=== PATIENT | male | born 1940 | race Caucasian/White ===

== ENCOUNTER → 2019-08-01 | Outpatient (CLI) | payer BC, OTHER ==
[2019-08-01 08:39] LABS: Basophils # (auto) 0.1 uL; Basophils % (auto) 0.6 % (0.0-2.0); Eosinophils # (auto) 0.3 uL; Eosinophils % (auto) 3.5 % (0.0-7.0); Hematocrit 38.8 % (41.0-53.0); Hemoglobin 13.1 g/dL (13.5-17.5); Lymphocytes # (auto) 2.3 uL; Lymphocytes % (auto) 28.2 % (10.0-50.0); Mean Corpuscular Hemoglobin 29.7 pg (28.0-32.0); Mean Corpuscular Hgb Conc. 33.7 g/dL (32.0-36.0); Mean Corpuscular Volume 88.2 fL (80.0-100.0); Monocytes # (auto) 0.8 uL; Monocytes % (auto) 9.5 % (0.0-12.0); Neutrophils # (auto) 4.8 uL; Neutrophils % (auto) 58.2 % (37.0-80.0); Platelet Count (auto) 221 10^3/uL (140-450); Red Cell Distribution Width 14.8 % (11.8-14.3); White Blood Cell 8.3 10^3/uL (4.4-10.8)
[2019-08-01 08:41] LABS: Urine Bacteria NONE SEEN /hpf (None Seen); Urine Blood TRACE /uL (Negative); Urine Mucus FEW (None Seen); Urine Specific Gravity 1.018 (1.001-1.035); Urine WBC 2 /hpf (0 - 3)
[2019-08-01 09:04] LABS: Albumin 3.6 g/dL (3.4-5.0); Calcium 9.8 mg/dL (8.5-10.1)
[2019-08-01 09:12] LABS: BUN/Creatinine Ratio 22.7; Bilirubin, Total 0.8 mg/dL (0.2-1.0); Total Protein 7.7 g/dL (6.4-8.2)
== END | disposition home or self-care (01) ==
LOC: LAB 08:10
PROVIDERS: ATTEND Internal Medicine
DX: E11.22 Type 2 diabetes mellitus with diabetic chronic kidney disease (principal); I12.9 Hypertensive chronic kidney disease with stage 1 through stage 4 chronic kidney disease, or unspecified chronic kidney disease; N18.9 Chronic kidney disease, unspecified
CPT/HCPCS: 36415; 80053; 80061; 81001; 82043; 82274; 82607; 83036; 84443; 85025

== ENCOUNTER → 2019-09-04 | Outpatient (CLI) | payer BC, OTHER ==
[2019-09-04 09:58] LABS: Calcium 9.4 mg/dL (8.5-10.1); Potassium 4.6 mmol/L (3.5-5.1)
== END | disposition home or self-care (01) ==
LOC: LAB 09:10
PROVIDERS: ATTEND Internal Medicine
DX: E11.22 Type 2 diabetes mellitus with diabetic chronic kidney disease (principal); N18.9 Chronic kidney disease, unspecified; Z79.4 Long term (current) use of insulin; Z86.73 Personal history of transient ischemic attack (TIA), and cerebral infarction without residual deficits
CPT/HCPCS: 36415; 80048; 82043

== ENCOUNTER → 2019-12-05 | Outpatient (CLI) | payer OTHER ==
[2019-12-05 07:51] LABS: Basophils # (auto) 0 10 ^3/uL (0-0.2); Basophils % (auto) 0.4 % (0.0-2.0); Eosinophils # (auto) 0.3 10 ^3/uL (0-0.8); Eosinophils % (auto) 3.7 % (0.0-7.0); Hematocrit 39.9 % (41.0-53.0); Hemoglobin 13.2 g/dL (13.5-17.5); Lymphocytes # (auto) 2.3 10 ^3/uL (0.4-5.4); Mean Corpuscular Hemoglobin 29.6 pg (28.0-32.0); Mean Corpuscular Hgb Conc. 33.2 g/dL (32.0-36.0); Mean Corpuscular Volume 89.2 fL (80.0-100.0); Monocytes # (auto) 0.7 10 ^3/uL (0-1.3); Monocytes % (auto) 9.4 % (0.0-12.0); Neutrophils # (auto) 4.5 10 ^3/uL (1.6-8.6); Neutrophils % (auto) 57.5 % (37.0-80.0); Platelet Count (auto) 192 10^3/uL (140-450); Red Blood Cells 4.47 10^6/uL (4.5-5.90); Red Cell Distribution Width 15.6 % (11.8-14.3); White Blood Cell 7.9 10^3/uL (4.4-10.8)
[2019-12-05 09:23] LABS: Potassium 4.2 mmol/L (3.5-5.1)
[2019-12-05 09:34] LABS: Albumin 3.8 g/dL (3.4-5.0); BUN/Creatinine Ratio 24.8; Bilirubin, Total 0.8 mg/dL (0.2-1.0); Calcium 9.6 mg/dL (8.5-10.1)
== END | disposition home or self-care (01) ==
LOC: LAB 07:20
PROVIDERS: ATTEND Internal Medicine
DX: E11.22 Type 2 diabetes mellitus with diabetic chronic kidney disease (principal); I12.9 Hypertensive chronic kidney disease with stage 1 through stage 4 chronic kidney disease, or unspecified chronic kidney disease; N18.9 Chronic kidney disease, unspecified
CPT/HCPCS: 36415; 80053; 80061; 83036; 85025

== ENCOUNTER → 2019-12-07 | Outpatient (CLI) | payer OTHER, BC | END | disposition home or self-care (01) | LOC: CARD 09:14 | PROVIDERS: ATTEND Internal Medicine | DX: I08.3 Combined rheumatic disorders of mitral, aortic and tricuspid valves (principal); I48.91 Unspecified atrial fibrillation; I10 Essential (primary) hypertension; E11.9 Type 2 diabetes mellitus without complications; Z86.73 Personal history of transient ischemic attack (TIA), and cerebral infarction without residual deficits | CPT/HCPCS: 93306 ==

== ENCOUNTER → 2020-02-02 | Outpatient (CLI) | payer BC, OTHER ==
[2020-02-02 11:35] LABS: Albumin 3.6 g/dL (3.4-5.0); Calcium 9.5 mg/dL (8.5-10.1); Potassium 4.2 mmol/L (3.5-5.1)
[2020-02-02 11:39] LABS: BUN/Creatinine Ratio 31.6; Bilirubin, Total 0.5 mg/dL (0.2-1.0); Total Protein 7.7 g/dL (6.4-8.2)
== END | disposition home or self-care (01) ==
LOC: LAB 10:19
PROVIDERS: ATTEND Internal Medicine
DX: I10 Essential (primary) hypertension (principal)
CPT/HCPCS: 36415; 80053

== ENCOUNTER → 2020-05-01 | Outpatient (CLI) | payer BC, OTHER, MEDICARE | END | disposition home or self-care (01) | LOC: XY 17:15 | PROVIDERS: ATTEND Internal Medicine | DX: I73.9 Peripheral vascular disease, unspecified (principal); I10 Essential (primary) hypertension; E11.9 Type 2 diabetes mellitus without complications | CPT/HCPCS: 93925 ==

== ENCOUNTER → 2020-05-22 | Day surgery (SDC) | payer OTHER ==
[2020-05-17 10:38] LABS: Basophils # (auto) 0 10 ^3/uL (0-0.2); Basophils % (auto) 0.5 % (0.0-2.0); Eosinophils # (auto) 0.4 10 ^3/uL (0-0.8); Eosinophils % (auto) 3.9 % (0.0-7.0); Hematocrit 37.1 % (41.0-53.0); Hemoglobin 12.5 g/dL (13.5-17.5); Lymphocytes # (auto) 2.4 10 ^3/uL (0.4-5.4); Lymphocytes % (auto) 26.3 % (10.0-50.0); Mean Corpuscular Hemoglobin 30.6 pg (28.0-32.0); Mean Corpuscular Hgb Conc. 33.7 g/dL (32.0-36.0); Mean Corpuscular Volume 90.8 fL (80.0-100.0); Monocytes # (auto) 0.8 10 ^3/uL (0-1.3); Monocytes % (auto) 8.8 % (0.0-12.0); Neutrophils # (auto) 5.4 10 ^3/uL (1.6-8.6); Neutrophils % (auto) 60.5 % (37.0-80.0); Platelet Count (auto) 215 10^3/uL (140-450); Red Blood Cells 4.09 10^6/uL (4.5-5.90); Red Cell Distribution Width 14.9 % (11.8-14.3)
[2020-05-17 10:49] LABS: Urine Bacteria NONE SEEN /hpf (None Seen); Urine Blood Negative /uL (Negative); Urine Hyaline Cast FEW /lpf (0 - 2); Urine Specific Gravity 1.011 (1.001-1.035); Urine WBC 1 /hpf (0 - 3)
[2020-05-17 10:57] LABS: INR 1.14 (0.9-1.15); Partial Thromboplastin Time 30.8 sec (23.0-31.2)
[2020-05-17 11:00] LABS: Potassium 3.8 mmol/L (3.5-5.1)
[2020-05-17 11:06] LABS: Albumin 4.1 g/dL (3.4-5.0); BUN/Creatinine Ratio 36.8; Bilirubin, Total 0.8 mg/dL (0.2-1.0); Calcium 9.7 mg/dL (8.5-10.1); Total Protein 7.9 g/dL (6.4-8.2)
[~2020-05-22] VITALS: Ht 190.5 cm; Wt 133.8 kg
[~2020-05-22] MED LIST: ACCU-CHEK COMFORT CURVE STRIP VI ONE; AMLO10TA13 PO; APIX5TAB PO; ASPI-543 PO; ATOR10TA52 PO; DexAMETHasone SOD PHOS 10MG/1ML VIAL INJ ONE; FURO40TA4 PO; HYDROmorphone HCL 2 MG/ML VL IV PRN; LABETALOL HCL 5 MG/ML 4ML SYRINGE IV PRN; MEPERIDINE HCL (50 MG/ML) 1 ML VIAL ONE; METF-372 PO; MIDAZOLAM HCL 1MG/1ML-2 ML VIAL IV PRN; MIDAZOLAM HCL 1MG/1ML-2 ML VIAL ONE; NEOMYCIN-BACITRACIN-POLYM 15GM TOP OINT TOP ONE; ONDANSETRON HCL 4 MG/2 ML VIAL IV PRN; POTA1TAB61 PO; PROPOFOL 10 MG/ML 20 ML IV ONE; ROPIVACAINE 0.5% (5MG/ML) 20ML AMPULE IJ ONE; ceFAZolin 1GM/50ML 50 ML IV ONE; ePHEDrine SULFATE 50 MG/ML AMP IV PRN; fentaNYL CITRATE 100 MCG/2 ML VL ONE
[2020-05-22 09:10] VITALS: BP 125/64
== END | disposition home or self-care (01) ==
LOC: SUR 06:27
PROVIDERS: ATTEND Podiatrist Foot & Ankle Surgery
DX: M79.675 Pain in left toe(s) (principal); M20.40 Other hammer toe(s) (acquired), unspecified foot; I10 Essential (primary) hypertension; Z85.46 Personal history of malignant neoplasm of prostate; Z88.5 Allergy status to narcotic agent; E66.9 Obesity, unspecified; Z88.1 Allergy status to other antibiotic agents; Z90.49 Acquired absence of other specified parts of digestive tract; Z90.79 Acquired absence of other genital organ(s); Z68.36 Body mass index [BMI] 36.0-36.9, adult; Z20.828 Contact with and (suspected) exposure to other viral communicable diseases; Z98.890 Other specified postprocedural states; Z79.899 Other long term (current) drug therapy
CPT/HCPCS: 28285; 36415; 80053; 81001; 82962; 85025; 85610; 85730; C1713; J0690; J1100; J2175; J2250; J2704; J2795; J3010; U0003

== ENCOUNTER → 2020-06-11 | Outpatient (CLI) | payer BC, OTHER ==
[~2020-06-11] MED LIST changes: -ACCU-CHEK COMFORT CURVE STRIP VI ONE; -DexAMETHasone SOD PHOS 10MG/1ML VIAL INJ ONE; -HYDROmorphone HCL 2 MG/ML VL IV PRN; -LABETALOL HCL 5 MG/ML 4ML SYRINGE IV PRN; -MEPERIDINE HCL (50 MG/ML) 1 ML VIAL ONE; -MIDAZOLAM HCL 1MG/1ML-2 ML VIAL IV PRN; -MIDAZOLAM HCL 1MG/1ML-2 ML VIAL ONE; -NEOMYCIN-BACITRACIN-POLYM 15GM TOP OINT TOP ONE; -ONDANSETRON HCL 4 MG/2 ML VIAL IV PRN; -PROPOFOL 10 MG/ML 20 ML IV ONE; -ROPIVACAINE 0.5% (5MG/ML) 20ML AMPULE IJ ONE; -ceFAZolin 1GM/50ML 50 ML IV ONE; -ePHEDrine SULFATE 50 MG/ML AMP IV PRN; -fentaNYL CITRATE 100 MCG/2 ML VL ONE
[2020-06-11 09:00] LABS: Basophils # (auto) 0 10 ^3/uL (0-0.2); Basophils % (auto) 0.4 % (0.0-2.0); Eosinophils # (auto) 0.3 10 ^3/uL (0-0.8); Eosinophils % (auto) 4.5 % (0.0-7.0); Hemoglobin 11.8 g/dL (13.5-17.5); Lymphocytes # (auto) 1.9 10 ^3/uL (0.4-5.4); Lymphocytes % (auto) 24.5 % (10.0-50.0); Mean Corpuscular Hemoglobin 30.1 pg (28.0-32.0); Mean Corpuscular Hgb Conc. 32.9 g/dL (32.0-36.0); Mean Corpuscular Volume 91.4 fL (80.0-100.0); Monocytes # (auto) 0.7 10 ^3/uL (0-1.3); Monocytes % (auto) 9.8 % (0.0-12.0); Neutrophils # (auto) 4.7 10 ^3/uL (1.6-8.6); Neutrophils % (auto) 60.8 % (37.0-80.0); Nucleated Red Blood Cells % 0.1 %; Platelet Count (auto) 226 10^3/uL (140-450); Red Blood Cells 3.93 10^6/uL (4.5-5.90); Red Cell Distribution Width 14.5 % (11.8-14.3); White Blood Cell 7.7 10^3/uL (4.4-10.8)
[2020-06-11 09:29] LABS: Albumin 3.5 g/dL (3.4-5.0); Calcium 9.5 mg/dL (8.5-10.1); Potassium 4.4 mmol/L (3.5-5.1)
[2020-06-11 09:32] LABS: Bilirubin, Total 0.7 mg/dL (0.2-1.0); Total Protein 7.6 g/dL (6.4-8.2)
== END | disposition home or self-care (01) ==
LOC: LAB 08:36
PROVIDERS: ATTEND Internal Medicine
DX: E11.22 Type 2 diabetes mellitus with diabetic chronic kidney disease (principal)
CPT/HCPCS: 36415; 80053; 83036; 85025

== ENCOUNTER → 2020-09-13 | Outpatient (CLI) | payer BC, OTHER ==
[~2020-09-13] MED LIST changes: +AMLO-496 PO; -AMLO10TA13 PO
[2020-09-13 08:31] LABS: Urine Blood Negative /uL (Negative); Urine Specific Gravity 1.013 (1.001-1.035)
[2020-09-13 09:05] LABS: Calcium 9.4 mg/dL (8.5-10.1); Potassium 4.4 mmol/L (3.5-5.1)
[2020-09-13 09:09] LABS: BUN/Creatinine Ratio 36.9
== END | disposition home or self-care (01) ==
LOC: LAB 08:14
PROVIDERS: ATTEND Internal Medicine
DX: Z12.5 Encounter for screening for malignant neoplasm of prostate (principal); E11.22 Type 2 diabetes mellitus with diabetic chronic kidney disease; N18.9 Chronic kidney disease, unspecified; Z79.899 Other long term (current) drug therapy
CPT/HCPCS: 36415; 80048; 80061; 81003; 83036; 84153; 87086

== ENCOUNTER → 2020-09-18 | Outpatient (CLI) | payer BC, OTHER | END | disposition home or self-care (01) | LOC: LAB 10:33 | PROVIDERS: ATTEND Internal Medicine | DX: E11.22 Type 2 diabetes mellitus with diabetic chronic kidney disease (principal); N18.9 Chronic kidney disease, unspecified | CPT/HCPCS: 82043 ==

== ENCOUNTER → 2020-10-01 | Outpatient (CLI) | payer BC, OTHER | END | disposition home or self-care (01) | LOC: LAB 14:39 | PROVIDERS: ATTEND Internal Medicine | DX: I10 Essential (primary) hypertension (principal); I27.20 Pulmonary hypertension, unspecified | CPT/HCPCS: 36415; 82565; 84520 ==

== ENCOUNTER 2020-11-15 17:17 | Inpatient (IN) | payer OTHER ==
[~2020-11-15] VITALS: Ht 188 cm; Wt 145.1 kg
[2020-11-15 18:23] LABS: Basophils # (auto) 0.1 10 ^3/uL (0-0.2); Basophils % (auto) 0.6 % (0.0-2.0); Eosinophils # (auto) 0.3 10 ^3/uL (0-0.8); Eosinophils % (auto) 2.9 % (0.0-7.0); Hematocrit 35.5 % (41.0-53.0); Hemoglobin 12.2 g/dL (13.5-17.5); Lymphocytes # (auto) 2.3 10 ^3/uL (0.4-5.4); Lymphocytes % (auto) 24.4 % (10.0-50.0); Mean Corpuscular Hemoglobin 31.1 pg (28.0-32.0); Mean Corpuscular Hgb Conc. 34.3 g/dL (32.0-36.0); Mean Corpuscular Volume 90.7 fL (80.0-100.0); Monocytes % (auto) 10.4 % (0.0-12.0); Neutrophils # (auto) 5.8 10 ^3/uL (1.6-8.6); Neutrophils % (auto) 61.7 % (37.0-80.0); Nucleated Red Blood Cells % 0.1 %; Platelet Count (auto) 235 10^3/uL (140-450); Red Blood Cells 3.92 10^6/uL (4.5-5.90); Red Cell Distribution Width 14.9 % (11.8-14.3); White Blood Cell 9.5 10^3/uL (4.4-10.8)
[2020-11-15 18:34] LABS: Alanine Aminotransferase 28 U/L (16-61); Albumin 2.9 g/dL (3.4-5.0); Anion Gap 7 (5-15); Aspartate Aminotransferase 29 U/L (15-37); Blood Urea Nitrogen 36 mg/dL (7-18); Calcium 9.1 mg/dL (8.5-10.1); Carbon Dioxide 26 mmol/L (21-32); Chloride 109 mmol/L (98-107); Glucose 75 mg/dL (74-106); Magnesium 2.5 mg/dL (1.6-2.6); Potassium 3.9 mmol/L (3.5-5.1); Sodium 142 mmol/L (136-145)
[2020-11-15 18:39] LABS: Alkaline Phosphatase 100 U/L (45-117); BUN/Creatinine Ratio 35.3; Bilirubin, Total 0.6 mg/dL (0.2-1.0); GFR African American 91 mL/min; GFR Non-African American 75 mL/min; Total Protein 5.7 g/dL (6.4-8.2)
[2020-11-15 18:48] LABS: INR 1.07 (0.9-1.15); Partial Thromboplastin Time 28.2 sec (23.0-31.2)
[2020-11-15] MEDS ORDERED: ONDANSETRON HCL 4 MG/2 ML VIAL IV PRN (21:15)
[2020-11-15] MEDS ORDERED: MORPHINE SULF INJ 2 MG/ML SYRINGE 1ML IV PRN (21:15)
[2020-11-15] MEDS ORDERED: TEMAZEPAM 15 MG CAP PO PRN (21:15)
[2020-11-15] MEDS ORDERED: NITROGLYCERIN 0.4 MG SL TAB SL PRN (21:15)
[2020-11-15] MEDS ORDERED: ACETAMINOPHEN 325 MG TAB PO PRN (21:15)
[2020-11-15] MEDS: ATORVASTATIN 20 MG TAB PO SCH (22:17)
[2020-11-15] MEDS: FAMOTIDINE 20 MG TAB PO SCH (22:17)
[2020-11-15] MEDS: APIXABAN 5 MG TAB PO SCH (22:17)
[2020-11-15 23:20] VITALS: BP 144/60
[2020-11-16] MEDS ORDERED: FUROSEMIDE 20 MG/2 ML VIAL IV ONE (00:45)
[2020-11-16 05:00] VITALS: BP 123/54
[2020-11-16 06:02] LABS: Alcohol, Urine < 3.0 mg/dL (0-10); Amphetamine Screen, Urine NEGATIVE (NEGATIVE); Barbiturate Scree,Urine NEGATIVE (NEGATIVE); Benzodiazephine Screen, Urine NEGATIVE (NEGATIVE); Cannabinoid Screen, Urine NEGATIVE (NEGATIVE); Cocaine Screen, Urine NEGATIVE (NEGATIVE); Opiate Scree,Urine NEGATIVE (NEGATIVE); Phencyclidine Screen, Urine NEGATIVE (NEGATIVE)
[2020-11-16 06:21] LABS: Basophils # (auto) 0 10 ^3/uL (0-0.2); Basophils % (auto) 0.4 % (0.0-2.0); Eosinophils # (auto) 0.3 10 ^3/uL (0-0.8); Eosinophils % (auto) 4.9 % (0.0-7.0); Hematocrit 35.8 % (41.0-53.0); Hemoglobin 12.3 g/dL (13.5-17.5); Lymphocytes # (auto) 1.9 10 ^3/uL (0.4-5.4); Lymphocytes % (auto) 27.4 % (10.0-50.0); Mean Corpuscular Hemoglobin 31.1 pg (28.0-32.0); Mean Corpuscular Hgb Conc. 34.4 g/dL (32.0-36.0); Mean Corpuscular Volume 90.5 fL (80.0-100.0); Monocytes # (auto) 0.8 10 ^3/uL (0-1.3); Monocytes % (auto) 11.2 % (0.0-12.0); Neutrophils # (auto) 3.8 10 ^3/uL (1.6-8.6); Neutrophils % (auto) 56.1 % (37.0-80.0); Nucleated Red Blood Cells % 0.1 %; Platelet Count (auto) 211 10^3/uL (140-450); Red Blood Cells 3.95 10^6/uL (4.5-5.90); Red Cell Distribution Width 14.3 % (11.8-14.3); White Blood Cell 6.8 10^3/uL (4.4-10.8)
[2020-11-16 06:40] LABS: Albumin 2.7 g/dL (3.4-5.0); Calcium 8.8 mg/dL (8.5-10.1); Potassium 3.9 mmol/L (3.5-5.1)
[2020-11-16 06:43] LABS: Bilirubin, Total 0.7 mg/dL (0.2-1.0); Total Protein 5.5 g/dL (6.4-8.2)
[2020-11-16] MEDS ORDERED: FURO40TA4 PO (06:50)
[2020-11-16] MEDS ORDERED: HYDR-4296 PO (07:00)
[2020-11-16] MEDS ORDERED: LOSA-39 PO (07:00)
[2020-11-16] MEDS ORDERED: INSLANTI SC (07:00)
[2020-11-16 08:00] VITALS: BP 122/57
[2020-11-16 08:48] VITALS: BP 122/57
[2020-11-16] MEDS ORDERED: FUROSEMIDE 40 MG TAB PO SCH (10:00)
[2020-11-16] MEDS: APIXABAN 5 MG TAB PO SCH ×2 (10:49→22:18)
[2020-11-16] MEDS: FAMOTIDINE 20 MG TAB PO SCH ×2 (10:52→22:19)
[2020-11-16] MEDS: amLODIPine BESYLATE 5 MG TAB PO SCH (10:52)
[2020-11-16] MEDS ORDERED: FUROSEMIDE 40 MG/4 ML VIAL IV ONE (11:45)
[2020-11-16] MEDS ORDERED: POTASSIUM CHL 20 Meq TABLET PO ONE (11:45)
[2020-11-16 13:00] VITALS: BP 142/61
[2020-11-16] MEDS ORDERED: DEXTROSE (50%) 50ML SYRG IV PRN (16:45)
[2020-11-16 16:46] VITALS: BP 139/63
[2020-11-16] MEDS: FUROSEMIDE 40 MG/4 ML VIAL IV SCH (18:05)
[2020-11-16] MEDS: ACCU-CHEK COMFORT CURVE STRIP VI SCH ×2 (18:05→22:19)
[2020-11-16] MEDS: InsuLIN REG 1unit/0.01ml Soln (100units/ml) SC SCH ×2 (18:06→22:37)
[2020-11-16 22:00] VITALS: BP 129/68
[2020-11-16] MEDS: ADCIRCA 20 MG PO SCH (22:00)
[2020-11-16] MEDS: ATORVASTATIN 20 MG TAB PO SCH (22:19)
[2020-11-16] MEDS: INSULIN LANTUS (GLARGINE) 1 /0.01ml (100units/ml) SC SCH (22:40)
[2020-11-17 05:00] VITALS: BP 100/39
[2020-11-17] MEDS: FUROSEMIDE 40 MG/4 ML VIAL IV SCH ×3 (05:56→21:47)
[2020-11-17] MEDS: ACCU-CHEK COMFORT CURVE STRIP VI SCH ×4 (06:27→21:48)
[2020-11-17] MEDS: InsuLIN REG 1unit/0.01ml Soln (100units/ml) SC SCH ×4 (06:27→21:45)
[2020-11-17 06:43] LABS: BUN/Creatinine Ratio 32.4; Potassium 3.9 mmol/L (3.5-5.1)
[2020-11-17 08:00] VITALS: BP 126/62
[2020-11-17 08:21] VITALS: BP 126/62
[2020-11-17] MEDS: ADCIRCA 20 MG PO SCH (09:39)
[2020-11-17] MEDS: APIXABAN 5 MG TAB PO SCH ×2 (09:39→21:47)
[2020-11-17] MEDS: amLODIPine BESYLATE 5 MG TAB PO SCH (09:40)
[2020-11-17] MEDS: FAMOTIDINE 20 MG TAB PO SCH ×2 (09:40→21:48)
[2020-11-17] MEDS ORDERED: POTASSIUM CHL 20 Meq TABLET PO ONE (11:45)
[2020-11-17 12:50] VITALS: BP 150/75
[2020-11-17] MEDS: SILDENAFIL CITRATE 20 MG TAB PO SCH ×2 (13:48→21:46)
[2020-11-17 16:38] VITALS: BP 134/82
[2020-11-17] MEDS: INSULIN LANTUS (GLARGINE) 1 /0.01ml (100units/ml) SC SCH (21:46)
[2020-11-17] MEDS: ATORVASTATIN 20 MG TAB PO SCH (21:48)
[2020-11-17 22:00] VITALS: BP 135/51
[2020-11-18 05:00] VITALS: BP 90/48
[2020-11-18] MEDS: FUROSEMIDE 40 MG/4 ML VIAL IV SCH ×3 (05:18→21:46)
[2020-11-18] MEDS: InsuLIN REG 1unit/0.01ml Soln (100units/ml) SC SCH ×4 (06:05→21:41)
[2020-11-18] MEDS: ACCU-CHEK COMFORT CURVE STRIP VI SCH ×4 (06:06→21:49)
[2020-11-18 07:18] LABS: Urine Bacteria NONE SEEN /hpf (None Seen); Urine Blood Negative /uL (Negative); Urine Hyaline Cast FEW /lpf (0 - 2); Urine Mucus FEW (None Seen); Urine WBC 1 /hpf (0 - 3)
[2020-11-18] MEDS: SILDENAFIL CITRATE 20 MG TAB PO SCH ×3 (08:03→19:55)
[2020-11-18 08:42] VITALS: BP 119/55
[2020-11-18] MEDS: APIXABAN 5 MG TAB PO SCH (10:00)
[2020-11-18] MEDS: POTASSIUM CHL 20 Meq TABLET PO SCH (10:01)
[2020-11-18] MEDS: FAMOTIDINE 20 MG TAB PO SCH ×2 (10:01→21:48)
[2020-11-18] MEDS: amLODIPine BESYLATE 5 MG TAB PO SCH (10:02)
[2020-11-18] MEDS ORDERED: LIDOCAINE 2%HCL (LOCAL ANESTH.) INJ 20ML MDV ONE ×2 (12:19→12:36)
[2020-11-18] MEDS ORDERED: IODIXANOL 320MG/ML 100ML BTL IV ONE (12:19)
[2020-11-18] MEDS ORDERED: ANGIOMAX 250 MG VIAL IV ONE (12:34)
[2020-11-18] MEDS ORDERED: VANCOMYCIN HCL 1000 MG VL ONE (12:34)
[2020-11-18] MEDS ORDERED: fentaNYL CITRATE 100 MCG/2 ML VL ONE ×2 (12:35→13:32)
[2020-11-18] MEDS ORDERED: MIDAZOLAM HCL 1MG/1ML-2 ML VIAL ONE ×2 (12:35→13:33)
[2020-11-18] MEDS ORDERED: SODIUM CHL 0.9% 50 ML ONE (12:35)
[2020-11-18] MEDS ORDERED: VANCOMYCIN 1GM/250ML 250 ML IV ONE (12:36)
[2020-11-18] MEDS ORDERED: TICAGRELOR 90 MG TAB ONE (14:21)
[2020-11-18] MEDS ORDERED: ASPirin 325 MG TAB ONE (14:22)
[2020-11-18 16:10] VITALS: BP 116/59
[2020-11-18] MEDS: TICAGRELOR 90 MG TAB PO SCH (21:47)
[2020-11-18] MEDS: ATORVASTATIN 20 MG TAB PO SCH (21:48)
[2020-11-18] MEDS: INSULIN LANTUS (GLARGINE) 1 /0.01ml (100units/ml) SC SCH (21:49)
[2020-11-18 22:00] VITALS: BP 126/48
[2020-11-19 05:00] VITALS: BP 113/54
[2020-11-19] MEDS: FUROSEMIDE 40 MG/4 ML VIAL IV SCH ×3 (05:25→21:18)
[2020-11-19] MEDS: InsuLIN REG 1unit/0.01ml Soln (100units/ml) SC SCH ×4 (05:31→21:15)
[2020-11-19] MEDS: ACCU-CHEK COMFORT CURVE STRIP VI SCH ×4 (05:31→21:19)
[2020-11-19 06:50] LABS: Potassium 3.9 mmol/L (3.5-5.1)
[2020-11-19 07:10] LABS: BUN/Creatinine Ratio 24.1; Calcium 8.7 mg/dL (8.5-10.1)
[2020-11-19 07:44] LABS: Basophils # (auto) 0 10 ^3/uL (0-0.2); Basophils % (auto) 0.3 % (0.0-2.0); Eosinophils # (auto) 0.2 10 ^3/uL (0-0.8); Eosinophils % (auto) 1.8 % (0.0-7.0); Hematocrit 36.4 % (41.0-53.0); Hemoglobin 12.6 g/dL (13.5-17.5); Lymphocytes # (auto) 1.7 10 ^3/uL (0.4-5.4); Lymphocytes % (auto) 17.6 % (10.0-50.0); Mean Corpuscular Hemoglobin 31.4 pg (28.0-32.0); Mean Corpuscular Hgb Conc. 34.6 g/dL (32.0-36.0); Mean Corpuscular Volume 90.7 fL (80.0-100.0); Monocytes % (auto) 10.1 % (0.0-12.0); Neutrophils % (auto) 70.2 % (37.0-80.0); Nucleated Red Blood Cells % 0.1 %; Platelet Count (auto) 232 10^3/uL (140-450); Red Blood Cells 4.01 10^6/uL (4.5-5.90); Red Cell Distribution Width 14.2 % (11.8-14.3); White Blood Cell 9.9 10^3/uL (4.4-10.8)
[2020-11-19 08:00] VITALS: BP 141/68
[2020-11-19] MEDS: SILDENAFIL CITRATE 20 MG TAB PO SCH ×3 (08:24→19:41)
[2020-11-19 09:10] VITALS: BP 141/68
[2020-11-19] MEDS: amLODIPine BESYLATE 5 MG TAB PO SCH (09:48)
[2020-11-19] MEDS: FAMOTIDINE 20 MG TAB PO SCH ×2 (09:48→21:19)
[2020-11-19] MEDS: TICAGRELOR 90 MG TAB PO SCH ×2 (09:48→19:37)
[2020-11-19] MEDS ORDERED: APIXABAN 2.5 MG TAB PO SCH (10:00)
[2020-11-19] MEDS: POTASSIUM CHL 20 Meq TABLET PO SCH (10:00)
[2020-11-19 11:30] VITALS: BP 117/55
[2020-11-19] MEDS ORDERED: VANCOMYCIN 1GM/250ML 250 ML IV ONE ×2 (14:00→15:13)
[2020-11-19] MEDS ORDERED: MIDAZOLAM HCL 1MG/1ML-2 ML VIAL ONE (15:13)
[2020-11-19] MEDS ORDERED: diphenhdrAMINE HCL 50 MG/1 ML VL ONE (15:13)
[2020-11-19] MEDS ORDERED: VANCOMYCIN HCL 1000 MG VL ONE (15:13)
[2020-11-19] MEDS ORDERED: fentaNYL CITRATE 100 MCG/2 ML VL ONE (15:13)
[2020-11-19] MEDS ORDERED: LIDOCAINE 2%HCL (LOCAL ANESTH.) INJ 20ML MDV ONE ×2 (15:14→16:15)
[2020-11-19] MEDS ORDERED: IOHEXOL 350 MG/ML 100ML IJ ONE (15:43)
[2020-11-19] MEDS ORDERED: FUROSEMIDE 20 MG/2 ML VIAL ONE (16:08)
[2020-11-19] MEDS: INSULIN LANTUS (GLARGINE) 1 /0.01ml (100units/ml) SC SCH (21:26)
[2020-11-19 22:00] VITALS: BP 116/56
[2020-11-19] MEDS ORDERED: ATORVASTATIN 20 MG TAB PO SCH (22:00)
[2020-11-20] MEDS: VANCOMYCIN 1GM/250ML 250 ML IV SCH ×2 (04:02→16:55)
[2020-11-20] MEDS: FUROSEMIDE 40 MG/4 ML VIAL IV SCH ×2 (04:02→13:42)
[2020-11-20 05:00] VITALS: BP 125/62
[2020-11-20] MEDS: InsuLIN REG 1unit/0.01ml Soln (100units/ml) SC SCH ×3 (06:03→17:00)
[2020-11-20] MEDS: ACCU-CHEK COMFORT CURVE STRIP VI SCH ×3 (06:04→17:46)
[2020-11-20 08:00] VITALS: BP 129/61
[2020-11-20] MEDS: SILDENAFIL CITRATE 20 MG TAB PO SCH ×2 (08:27→13:41)
[2020-11-20 09:01] VITALS: BP 129/61
[2020-11-20] MEDS ORDERED: APIXABAN 2.5 MG TAB PO SCH (10:00)
[2020-11-20] MEDS: TICAGRELOR 90 MG TAB PO SCH (10:27)
[2020-11-20] MEDS: POTASSIUM CHL 20 Meq TABLET PO SCH (10:28)
[2020-11-20] MEDS: amLODIPine BESYLATE 5 MG TAB PO SCH (10:29)
[2020-11-20] MEDS: FAMOTIDINE 20 MG TAB PO SCH (10:29)
[2020-11-20 12:48] VITALS: BP 120/63
[2020-11-20 16:43] VITALS: BP_SYST 108; BP_SYST 120; BP_DIAS 55; BP_DIAS 63
== END 2020-11-20 18:05 | disposition home or self-care (01) | DRG 242 ==
LOC: ER 17:17 → TELE 21:17 → TELE-CENTR 23:12
PROVIDERS: ADMIT Nurse Practitioner; ATTEND Internal Medicine
PROC: 027034Z Dilation of Coronary Artery, One Artery with Drug-eluting Intraluminal Device, Percutaneous Approach (ICD-10-PCS; 2020-11-18)
PROC: 4A023N8 Measurement of Cardiac Sampling and Pressure, Bilateral, Percutaneous Approach (ICD-10-PCS; 2020-11-18)
PROC: B2111ZZ Fluoroscopy of Multiple Coronary Arteries using Low Osmolar Contrast (ICD-10-PCS; 2020-11-18)
PROC: B2151ZZ Fluoroscopy of Left Heart using Low Osmolar Contrast (ICD-10-PCS; 2020-11-18)
PROC: 0JH606Z Insertion of Pacemaker, Dual Chamber into Chest Subcutaneous Tissue and Fascia, Open Approach (ICD-10-PCS; principal; 2020-11-19)
PROC: 02HK3JZ Insertion of Pacemaker Lead into Right Ventricle, Percutaneous Approach (ICD-10-PCS; 2020-11-19)
PROC: 02H63JZ Insertion of Pacemaker Lead into Right Atrium, Percutaneous Approach (ICD-10-PCS; 2020-11-19)
PROC: B5171ZZ Fluoroscopy of Left Subclavian Vein using Low Osmolar Contrast (ICD-10-PCS; 2020-11-19)
DX: I49.5 Sick sinus syndrome (principal); I50.33 Acute on chronic diastolic (congestive) heart failure; E44.0 Moderate protein-calorie malnutrition; Z68.41 Body mass index [BMI] 40.0-44.9, adult; E87.4 Mixed disorder of acid-base balance; I11.0 Hypertensive heart disease with heart failure; I27.20 Pulmonary hypertension, unspecified; E11.9 Type 2 diabetes mellitus without complications; D64.9 Anemia, unspecified; I48.91 Unspecified atrial fibrillation; E66.01 Morbid (severe) obesity due to excess calories; Z20.822 Contact with and (suspected) exposure to COVID-19; I25.10 Atherosclerotic heart disease of native coronary artery without angina pectoris; Z85.46 Personal history of malignant neoplasm of prostate; Z86.73 Personal history of transient ischemic attack (TIA), and cerebral infarction without residual deficits; Z88.5 Allergy status to narcotic agent; Z88.2 Allergy status to sulfonamides; Z90.49 Acquired absence of other specified parts of digestive tract; Z90.79 Acquired absence of other genital organ(s)
CPT/HCPCS: 33208; 36415; 36600; 71045; 80048; 80053; 80307; 81001; 82306; 82805; 82962; 83036; 83735; 83880; 84443; 84484; 85025; 85379; 85610; 85730; 86850; 86900; 86901; 87426; 92928; 93005; 93306; 93453; 93970; 99152; 99153; C1751; C1785; C1874; C1887; G0378; J1815; J2250; Q9967

== ENCOUNTER → 2020-12-02 | Outpatient (CLI) | payer OTHER ==
[~2020-12-02] MED LIST changes: -AMLO-496 PO; +FUROSEMIDE 100 MG/10ML VIAL IV ONE; +FUROSEMIDE 40 MG/4 ML VIAL ONE; +HYDR-4296 PO; +INSLANTI SC; +LOSA-39 PO; -POTA1TAB61 PO; +POTASSIUM CHL 20 Meq TABLET PO ONE; +metOLazone 5 MG TAB ONE; +metOLazone 5 MG TAB PO ONE
[2020-12-02 12:03] VITALS: BP 118/58
[2020-12-02 13:05] VITALS: BP 121/61
== END | disposition home or self-care (01) ==
LOC: CHF HDHVI 12:05
PROVIDERS: ATTEND Internal Medicine Cardiovascular Disease
DX: I11.0 Hypertensive heart disease with heart failure (principal); I50.23 Acute on chronic systolic (congestive) heart failure; R60.9 Edema, unspecified; E87.6 Hypokalemia; I25.10 Atherosclerotic heart disease of native coronary artery without angina pectoris; I48.91 Unspecified atrial fibrillation; E11.9 Type 2 diabetes mellitus without complications; E66.01 Morbid (severe) obesity due to excess calories; Z68.41 Body mass index [BMI] 40.0-44.9, adult; Z90.49 Acquired absence of other specified parts of digestive tract; Z90.79 Acquired absence of other genital organ(s); Z85.46 Personal history of malignant neoplasm of prostate; Z86.73 Personal history of transient ischemic attack (TIA), and cerebral infarction without residual deficits
CPT/HCPCS: 36415; 82565; 84132; 84520; 96374; G0463; J1940

== ENCOUNTER → 2020-12-12 | Outpatient (CLI) | payer OTHER ==
[~2020-12-12] MED LIST changes: -FUROSEMIDE 100 MG/10ML VIAL IV ONE; -FUROSEMIDE 40 MG/4 ML VIAL ONE; -POTASSIUM CHL 20 Meq TABLET PO ONE; -metOLazone 5 MG TAB ONE; -metOLazone 5 MG TAB PO ONE
[2020-12-12 14:22] LABS: Calcium 9.4 mg/dL (8.5-10.1); Potassium 3.5 mmol/L (3.5-5.1)
[2020-12-12 14:25] LABS: BUN/Creatinine Ratio 34.8
== END | disposition home or self-care (01) ==
LOC: LAB 13:38
PROVIDERS: ATTEND Internal Medicine
DX: I50.32 Chronic diastolic (congestive) heart failure (principal)
CPT/HCPCS: 36415; 80048; 83880

== ENCOUNTER → 2020-12-20 | Outpatient (CLI) | payer MEDICARE, OTHER ==
[~2020-12-20] MED LIST changes: +ERGO2000 PO; +METO5TAB5 PO; +POTA-220 PO; +SILD25TA15 PO; +TICA1TAB PO
== END | disposition home or self-care (01) ==
LOC: Rad HDHVI 09:00
PROVIDERS: ATTEND Internal Medicine Cardiovascular Disease
DX: I50.32 Chronic diastolic (congestive) heart failure (principal); R00.1 Bradycardia, unspecified
CPT/HCPCS: 93306

== ENCOUNTER → 2020-12-23 | Outpatient (CLI) | payer MEDICARE, OTHER ==
[2020-12-23 09:16] VITALS: BP 138/61
[2020-12-23 09:30] VITALS: BP 141/67
[2020-12-23 11:49] LABS: Basophils # (auto) 0 10 ^3/uL (0-0.2); Basophils % (auto) 0.4 % (0.0-2.0); Eosinophils # (auto) 0.2 10 ^3/uL (0-0.8); Eosinophils % (auto) 2.6 % (0.0-7.0); Hematocrit 36.1 % (41.0-53.0); Hemoglobin 12.2 g/dL (13.5-17.5); Lymphocytes % (auto) 23.9 % (10.0-50.0); Mean Corpuscular Hemoglobin 30.6 pg (28.0-32.0); Mean Corpuscular Hgb Conc. 33.9 g/dL (32.0-36.0); Mean Corpuscular Volume 90.3 fL (80.0-100.0); Monocytes # (auto) 0.7 10 ^3/uL (0-1.3); Monocytes % (auto) 8.4 % (0.0-12.0); Neutrophils # (auto) 5.5 10 ^3/uL (1.6-8.6); Neutrophils % (auto) 64.7 % (37.0-80.0); Platelet Count (auto) 240 10^3/uL (140-450); Red Cell Distribution Width 14.2 % (11.8-14.3); White Blood Cell 8.5 10^3/uL (4.4-10.8)
[2020-12-23 12:02] LABS: INR 1.04 (0.9-1.15); Partial Thromboplastin Time 27.9 sec (23.0-31.2)
[2020-12-23 12:26] LABS: Calcium 9.7 mg/dL (8.5-10.1); Potassium 4.2 mmol/L (3.5-5.1)
== END | disposition home or self-care (01) ==
LOC: CHF HDHVI 08:51
PROVIDERS: ATTEND Internal Medicine Cardiovascular Disease
DX: Z01.812 Encounter for preprocedural laboratory examination (principal); I25.10 Atherosclerotic heart disease of native coronary artery without angina pectoris; I50.9 Heart failure, unspecified; I73.9 Peripheral vascular disease, unspecified
CPT/HCPCS: 36415; 80048; 85025; 85610; 85730; 93005; G0463

== ENCOUNTER 2020-12-26 07:53 | Day surgery (SDC) | payer OTHER ==
[~2020-12-26] VITALS: Ht 188 cm; Wt 129.3 kg
[2020-12-26] MEDS ORDERED: LIDOCAINE 2%HCL (LOCAL ANESTH.) INJ 20ML MDV ONE (09:10)
[2020-12-26] MEDS ORDERED: IOHEXOL 350 MG/ML 100ML IJ ONE ×2 (09:10→09:55)
[2020-12-26] MEDS ORDERED: ANGIOMAX 250 MG VIAL IV ONE (09:24)
[2020-12-26] MEDS ORDERED: SODIUM CHL 0.9% 50 ML ONE (09:24)
[2020-12-26] MEDS ORDERED: fentaNYL CITRATE 100 MCG/2 ML VL ONE (09:24)
[2020-12-26] MEDS ORDERED: MIDAZOLAM HCL 1MG/1ML-2 ML VIAL ONE (09:24)
[2020-12-26] MEDS ORDERED: ASPirin 81 mg TAB ONE (10:14)
[2020-12-26] MEDS ORDERED: TICAGRELOR 60 MG TAB PO ONE (10:15)
[2020-12-26] MEDS ORDERED: ONDANSETRON HCL 4 MG/2 ML VIAL IV PRN (10:45)
[2020-12-26] MEDS ORDERED: ACETAMINOPHEN 500 MG TAB PO PRN (10:45)
== END 2020-12-26 13:15 | disposition home or self-care (01) ==
LOC: CATH 07:53
PROVIDERS: ATTEND Internal Medicine Cardiovascular Disease
DX: I25.10 Atherosclerotic heart disease of native coronary artery without angina pectoris (principal); E11.9 Type 2 diabetes mellitus without complications; I50.9 Heart failure, unspecified; I11.0 Hypertensive heart disease with heart failure; E73.9 Lactose intolerance, unspecified; E66.9 Obesity, unspecified; Z85.46 Personal history of malignant neoplasm of prostate; Z20.822 Contact with and (suspected) exposure to COVID-19; Z98.890 Other specified postprocedural states; Z88.5 Allergy status to narcotic agent; Z88.1 Allergy status to other antibiotic agents; Z98.61 Coronary angioplasty status; Z96.89 Presence of other specified functional implants; Z68.36 Body mass index [BMI] 36.0-36.9, adult
CPT/HCPCS: 92978; 93454; C1760; C1769; C1874; C1887; C1894; C9600; J0583; J1644; J2250; J3010; J7030; Q9967; U0003; 99152

== ENCOUNTER → 2021-01-16 | Outpatient (CLI) | payer MEDICARE, OTHER ==
[~2021-01-16] MED LIST changes: +CYANOCOBALAMIN (B-12) 1000 MCG/1 ML VIAL IM ONE; +CYANOCOBALAMIN (B-12) 1000 MCG/1 ML VIAL ONE
[2021-01-16 11:00] VITALS: BP 106/48
[2021-01-16 13:20] VITALS: BP 119/55
[2021-01-16 15:14] LABS: Basophils # (auto) 0 10 ^3/uL (0-0.2); Basophils % (auto) 0.6 % (0.0-2.0); Eosinophils # (auto) 0.2 10 ^3/uL (0-0.8); Eosinophils % (auto) 2.5 % (0.0-7.0); Hematocrit 33.7 % (41.0-53.0); Lymphocytes % (auto) 25.7 % (10.0-50.0); Mean Corpuscular Hemoglobin 31.6 pg (28.0-32.0); Mean Corpuscular Hgb Conc. 35.7 g/dL (32.0-36.0); Mean Corpuscular Volume 88.5 fL (80.0-100.0); Monocytes # (auto) 0.6 10 ^3/uL (0-1.3); Monocytes % (auto) 8.3 % (0.0-12.0); Neutrophils # (auto) 4.9 10 ^3/uL (1.6-8.6); Neutrophils % (auto) 62.9 % (37.0-80.0); Nucleated Red Blood Cells % 0.1 %; Red Blood Cells 3.81 10^6/uL (4.5-5.90); Red Cell Distribution Width 14.2 % (11.8-14.3); White Blood Cell 7.8 10^3/uL (4.4-10.8)
[2021-01-16 15:23] LABS: Albumin 3.5 g/dL (3.4-5.0); Calcium 9.2 mg/dL (8.5-10.1); Magnesium 2.4 mg/dL (1.6-2.6); Potassium 3.8 mmol/L (3.5-5.1)
[2021-01-16 15:28] LABS: BUN/Creatinine Ratio 38.7; Bilirubin, Total 1.1 mg/dL (0.2-1.0); Total Protein 7.1 g/dL (6.4-8.2)
== END | disposition home or self-care (01) ==
LOC: CHF HDHVI 10:52
PROVIDERS: ATTEND Internal Medicine Cardiovascular Disease
DX: I27.21 Secondary pulmonary arterial hypertension (principal); R53.83 Other fatigue; I25.10 Atherosclerotic heart disease of native coronary artery without angina pectoris; I11.0 Hypertensive heart disease with heart failure; I50.42 Chronic combined systolic (congestive) and diastolic (congestive) heart failure; E11.9 Type 2 diabetes mellitus without complications; I73.9 Peripheral vascular disease, unspecified; I48.91 Unspecified atrial fibrillation; E66.01 Morbid (severe) obesity due to excess calories; Z68.41 Body mass index [BMI] 40.0-44.9, adult; Z98.890 Other specified postprocedural states
CPT/HCPCS: 36415; 80053; 83735; 83880; 85025; 93005; 94618; 96372; G0463; J3420; 85049

== ENCOUNTER → 2021-02-18 | Outpatient (CLI) | payer MEDICARE, OTHER ==
[~2021-02-18] MED LIST changes: -CYANOCOBALAMIN (B-12) 1000 MCG/1 ML VIAL IM ONE; -CYANOCOBALAMIN (B-12) 1000 MCG/1 ML VIAL ONE
[2021-02-18 13:35] LABS: BUN/Creatinine Ratio 26.1; Calcium 9.1 mg/dL (8.5-10.1); Potassium 4.5 mmol/L (3.5-5.1)
== END | disposition home or self-care (01) ==
LOC: LABCORP 12:58
PROVIDERS: ATTEND Internal Medicine
DX: I50.32 Chronic diastolic (congestive) heart failure (principal); N18.2 Chronic kidney disease, stage 2 (mild)
CPT/HCPCS: 36415; 80048

== ENCOUNTER → 2021-11-18 | Outpatient (CLI) | payer BC | END | disposition home or self-care (01) | LOC: LAB 11:21 | PROVIDERS: ATTEND Internal Medicine | DX: E07.9 Disorder of thyroid, unspecified (principal); E08.9 Diabetes mellitus due to underlying condition without complications | CPT/HCPCS: 36415; 84439; 84443 ==

== ENCOUNTER → 2022-08-19 | Outpatient (CLI) | payer BC ==
[2022-08-19 09:49] LABS: Urine Blood Negative /uL (Negative)
[2022-08-19 10:00] LABS: Basophils # (auto) 0 10 ^3/uL (0-0.2); Basophils % (auto) 0.4 % (0.0-2.0); Eosinophils # (auto) 0.2 10 ^3/uL (0-0.8); Eosinophils % (auto) 3.5 % (0.0-7.0); Hematocrit 31.5 % (41.0-53.0); Hemoglobin 10.6 g/dL (13.5-17.5); Lymphocytes # (auto) 1.3 10 ^3/uL (0.4-5.4); Lymphocytes % (auto) 21.8 % (10.0-50.0); Mean Corpuscular Hemoglobin 30.6 pg (28.0-32.0); Mean Corpuscular Hgb Conc. 33.8 g/dL (32.0-36.0); Mean Corpuscular Volume 90.7 fL (80.0-100.0); Monocytes # (auto) 0.6 10 ^3/uL (0-1.3); Monocytes % (auto) 9.8 % (0.0-12.0); Neutrophils # (auto) 3.8 10 ^3/uL (1.6-8.6); Neutrophils % (auto) 64.5 % (37.0-80.0); Nucleated Red Blood Cells % 0.1 %; Red Blood Cells 3.48 10^6/uL (4.5-5.90); Red Cell Distribution Width 13.8 % (11.8-14.3); White Blood Cell 5.8 10^3/uL (4.4-10.8)
[2022-08-19 10:14] LABS: Albumin 3.3 g/dL (3.4-5.0); Potassium 3.5 mmol/L (3.5-5.1)
[2022-08-19 10:20] LABS: Free T4 (Free Thyroxine) 1.12 ng/dL (0.89-1.76)
[2022-08-19 10:23] LABS: BUN/Creatinine Ratio 35.1; Bilirubin, Total 0.4 mg/dL (0.2-1.0); Calcium 9.2 mg/dL (8.5-10.1); Total Protein 6.5 g/dL (6.4-8.2)
[2022-08-19 10:29] LABS: Micro Albumin < 5.00 mg/L (0-30.0)
== END | disposition home or self-care (01) ==
LOC: LAB 09:10
PROVIDERS: ATTEND Internal Medicine
DX: E11.22 Type 2 diabetes mellitus with diabetic chronic kidney disease (principal); N18.31 Chronic kidney disease, stage 3a; J98.59 Other diseases of mediastinum, not elsewhere classified
CPT/HCPCS: 36415; 80053; 80061; 81003; 82043; 82306; 82607; 83036; 84439; 84443; 85025